=== PATIENT | male | born 2000 | race Caucasian/White ===

== ENCOUNTER 2023-12-14 22:29 | Emergency (ER) | payer OTHER ==
[~2023-12-14] VITALS: Ht 180.3 cm; Wt 99.0 kg
[2023-12-14] MEDS: LIDOCAINE W/EPINEPHRINE 1% 20ML VIAL SC ONE (22:50)
[2023-12-15] VITALS: BP 159/79; TEMP 97.1; O2SAT 100
== END 2023-12-15 00:09 | disposition home or self-care (01) ==
LOC: M ED 22:29
DX: S01.81XA Laceration without foreign body of other part of head, initial encounter (principal); Y92.019 Unspecified place in single-family (private) house as the place of occurrence of the external cause; Y93.9 Activity, unspecified; Y99.9 Unspecified external cause status; F17.290 Nicotine dependence, other tobacco product, uncomplicated; F10.10 Alcohol abuse, uncomplicated